=== PATIENT | female | born 1940 | race Caucasian/White ===

== ENCOUNTER → 2019-05-25 08:54 | Outpatient (CLI) | payer MEDICARE, OTHER, SELFPAY ==
--- NOTE | 2019-05-25 09:32 | PCM.CR.HP2 ---
CR - History & Physical - General Arrival date:: 05/25/19 Arrival time:: 09:00 Date of Referral:: 03/22/19 Date of CR Evaluation:: 05/25/19 Referring Physician: Dr. Mueller - History of Present Cardiac Event Onset Date: Enter Onset Date of cardiac illnesses in Comment field below Current stable Angina Pectoris:: No Acute Myocardial Infarction within 12 months:: No Heart valve replacement or repair:: Yes - 03/22/2019 PTCA or coronary stenting:: No Heart or Heart-Lung Transplant:: No Type of Symptoms:: more fatigued as usual, murmur Interventions with present event:: AVR Were there any complications?: none, brief period of a fib post op - Medications Home Medications: Ambulatory Orders Medication Instructions Recorded Aspirin [Aspirin, Baby] 81 mg PO DAILY@0800 05/25/19 Atorvastatin Calcium [Lipitor] 40 mg PO QHS 05/25/19 Cholecalciferol (Vitamin D3) 2,000 unit PO DAILY 05/25/19 [Vitamin D3] Multivit-Min/Iron/Folic Acid/K 1 each PO DAILY 05/25/19 [Adults Multivitamin Caplet] - Allergies Allergies/Adverse Reactions: Allergies amoxicillin [From Augmentin] Adverse Reaction (Intermediate, Verified 05/25/19 09:44) liver enzymes elevated clavulanic acid [From Augmentin] Adverse Reaction (Intermediate, Verified 05/25/19 09:44) liver enzymes elevated - Sleep Disorder Evaluation Hx of Sleep Apnea: No Do you snore loudly (louder than talking or can be heard through closed doors)?: No Do you often feel tired/ fatigued/ sleepy during daytime?: No Has anyone observed you stop breathing during sleep?: No History of Hypertension (for STOP score): No STOP Results: Negative Advanced Directives - Advanced Directives Power of Marketing Services Specialist: Yes - pt states she has and will bring copies into medical records Living Will: Yes Advance Directives Information Provided: No Advance Directives on File: No DNR Order?:: No Past Medical History - Past Surgical History Surgical History: hysterectomy - 1997, sinus surgery in 2003 as well Social History - Smoking History Smoking Status: Former smoker Years Smokin Packs Smoked per Day: 1 Hx Tobacco Use: Yes - Alcohol Use Alcohol Usage: Yes - one glass of wine per day with dinner - Substance Abuse Hx Substance Use: No - Occupation Occupation (List type of work in comments):: Retired - Hobbies, Recreation, Social Activities Hobbies: Reading, Walking Recreational Activities: I am able to engage in all my recreational activities Social Environment - Status Marital Status: - Current Living Arrangements Living Environment:: Alone - Children How many children do you have?: 2 Do any of your children live nearby?: No - Safety Do you feel safe in your surroundings?: Yes - Assistance Do you need any assistance at home?: none Review of Systems - Review of Systems Hints: Right click = Denies ([place]ash). Left click = Reports ([place]) Review of Present Symptoms: Reports: Wound Healing - edges well approximated without redness, edema or drainage, Appetite - Normal, Sleep - Normal. Denies: Shortness of Breath at Rest, Shortness of Breath with Exertion, PVD, Operative Discomfort, Angina, Dizziness/Lightheadedness, Fatigue, Heart Arrhythmia/Irregularities, Appetite - Special Diet - Pain Is Patient Pain Free?: Yes Risk Factor Assessment - Chief Complaint Chief Complaint: CURRENT POST AVR PT WHO PRESENTS TODAY FOR CARDIAC REHAB INTIAL EVALUATION - Vital Signs Temperature: 98.6 F Respiratory Rate: 20 Pulse Ox: 98 Blood Pressure: 128/88 Nailbeds:: PINK - Pulse Pulse Rate: 74 Pulse Rhythm: Regular - Stress Stress: Recent - H, Home/Family - IS IN A CARE CENTER FOR NOW - Diabetes Nutrition Referral for Diabetes: No - Obesity Height: 5 ft 1 in Weight:: 122 lb Weight in Pounds: 122.0 lbs Weight Source: Stated by Patient Body Mass Index (BMI): 23.0 - For Smoking Smoking Risk Guidelines: Smoking Low Risk: None or quit greater than 6 months ago. Smoking Moderate Risk: Smoker or quit 6 months or less ago. Smoking High Risk: Smoker - For Dyslipidemia Dyslipidemia Risk Guidelines: Low Risk: Moderate Risk: High Risk: 15-25% fat 25.1-29% fat >/= 30% fat. <7% sat fat 7-9% sat fat >9% sat fat. <150 mg chol 150-299 mg chol >/= 300 mg chol. LDL <100 LDL 100-129 LDL >/= 130. Chol/HDL ratio <5.0 Chol/HDL ratio 5.0-6.0 Chol/HDL ratio >6.0. Triglycerides <100 Triglycerides 100-149 Triglycerides >/= 150 - For Diabetes Mellitus Diabetes Risk Guidelines: Diabetes Low Risk: HgA1c <6.5% and/or FBG <120. Diabetes Moderate Risk: HgA1c 6.6-7.9% and/or FBG 120-180. Diabetes High Risk: HgA1c >/= 8% and/or FBG >180 - For Obesity/Overweight Obesity/Overweight Risk Guidelines: Obesity Low Risk: BMI <25.0. Obesity Moderate Risk: BMI 25-29.9. Obesity High Risk: BMI >/= 30.0 - For Hypertension Hypertension Risk Guidelines: Hypertension Low Risk: Systolic <120 and Diastolic <80. Hypertension Moderate Risk: Systolic 120-139 and Diastolic 80-89. Hypertension High Risk: Systolic >/= 140 and Diastolic >/= 90 - For Sedentary Lifestyle Sedentary Lifestyle Risk Guidelines: Sedentary Lifestyle Low Risk: >/= 1,500 kcal/week. Sedentary Lifestyle Moderate Risk: 700-1,499 kcal/week. Sedentary Lifestyle High Risk: < 700 kcal/week - For Depression Depression Risk Guidelines: Depression Low Risk: Not clinically depressed. Depression Moderate Risk: Mildly depressed. Depression High Risk: Clinically depressed Motivation - Motivation to Participate On a scale of 1 to 10, how prepared are you to commit to attending program?: 10 What do you see as barriers to successfully being able to complete the program?: NONE What do you see as the benefits of succesfully completing the program? In other words, what do you hope to get out of participating in the program?: INCREASED ENERGY, BODY HEALTH Are there issues you are dealing with that will interfere with completing the program?: POSSIBLE SITUATION IN CARE CENTER Do you have a spouse or signficant other, family or friends who will help support you to complete the program?: FAMILY AND FRIENDS VERY HELPFUL
--- NOTE | 2019-05-25 09:32 | PCM.CR.ITP ---
General Information - General Information Admitting Diagnosis: AV REPLACEMENT - Education/Goals Barriers to Learning: None Individual Counseling: Initial Assessment: Stress - PT RECENTLY PLACED IN CARE CENTER (POSS TEMPORARY) Cardiac Rehabilitation Goals: 1. Maintain the individual as the primary focus of care. 2. To improve the patient's quality of life. 3. Identification of cardiac risk factors and provide cardiac risk factor management. 4. Enhance the psychosocial status of the patient. 5. Reconditioning enough to allow the patient to resume customary activities. 6. Control symptoms of cardiac disease Scale for measuring improvement of personal goals: Enter appropriate number in Comments. 2 = Unchanged. 3 = Slightly Better. 4 = Moderate Improvement. 5 = Met my Goal Personal Goals: Initial Assessment: Improve energy level, Improve muscle strength and endurance Exercise - Initial Assessment - Visit Date of Eval: 05/25/19 - Stages of Change Stages of Change:: Action - Physician Prescribed Exercise Modalities: Treadmill, Biodyne, Airdyne, NuStep, SciFit Frequency (days/week): 3x/week for 12 weeks [36 sessions] Intensity: 60-80% age predicted maximum heart rate reserve Target Heart Rate:: 93-122 - Hypertension Do any of the following apply?: No Resting Blood Pressure:: 128/88 - Intervention Home Exercise/Activity Goal:: Sitting Time <3 hrs/day - Education Goals:: Warm-up, RPE GRAHAM Scale, S/S, Safe Exercise, Self-Monitoring Nutrition - Initial Assessment - Program Goals Nutrition Program Goals: LDL <70. Total Cholesterol <200. HDL >45. Triglycerides <150. HgbA1C <7%. BMI <25 - Visit Date of Assessment:: 05/25/19 - Stages of Change Stages of Change:: Action - LIPID PROFILE NOT AVAILABLE AT THIS TIME. PT STATES SHE WILL BRING IN - Diabetes Diabetes:: No - Weight Management Height: 5 ft 1 in Weight:: 122 lb - Intervention Referral to dietitian:: No Referral to Diabetic Clinic:: No Will attend diet classes:: Yes - CR CLASS Tobacco - Initial Assessment - Program Goals Tobacco Program Goals: Complete smoking cessation. Attend education classes. Improve Knowledge Test score - Stage of Change Stages of Change:: Action - Learning Barriers Learning Barriers: Ready to Learn - Family Support Do you have family support?: Yes - PT STATES SHE HAS SUPPORT FROM MANY FAMILY MEMBERS AND FRIENDS - Tobacco Use Tobacco Use: Non-smoker How long ago did you quit using tobacco products?: Greater than or equal to 6 months ago Years Smokin Do you use smokeless tobacco?: No - Intervention Smoking Cessation Referral:: No - PT QUIT SMOKING 35 YEARS AGO Individual Education/Counseling:: Yes - CR CLASSES - Education Attended class for:: Treating Heart Disease, How The Heart Works, What it means to have Heart Disease, How Coronary Artery Disease is Diagnosed, Heart Procedures, Risk Factors & Modifications, Living an Active Life, Nutrition, Emotions & Heart Disease, Stress Management & Relaxation - PT GIVEN THE INSTRUCTIONS ON HOW TO ACCESS THE [facility] WEBSITE FOR EDUCATION MATERIALS AT THIS TIME Psychosocial - Initial Assess - Target Goals Target Goals: Assess presence or absence of depression. Using a valid screening tool, maximizes coping skills. Positive support system - Stages of Change Stages of Change:: Action - Psychosocial Test Tool Used:: HANDS Depression Questionnaire - Intervention PS - Interventions: Yes Attend Stress Management Classes - CR CLASSES, Yes Uses Stress Management Skills - CR CLASSES, No Referral to Mental Health, No Referral to [facility] Case Management, No Referral to Physician - Education Gave educational materials for:: Coping techniques - [facility] ON-LINE EDUCATION MATERIAL DISCUSSED, Signs & symptoms of depression, Stress management, Relaxation techniques - Patient/Program Goal Preventative Medication(s):: Aspirin, Statin/lipid - Assistive Devices Assistive Devices:: None Fall Risk Assessed:: No Patient Health Questionnaire Initial Assessment 1. Little interest or pleasure in doing things: Not at all 2. Feeling down, depressed, or hopeless: Not at all 3. Trouble falling or staying asleep, or sleeping too much: Several days 4. Feeling tired or having little energy: Several days 5. Poor appetite or overeating: Not at all 6. Feeling bad about yourself -- or that you are a failure or have let yourself or your family down: Not at all 7. Trouble concentrating on things, such as reading the newspaper or watching television: Not at all 8. Moving or speaking so slowly that other people could have noticed. Or the opposite - being so fidgety or restless that you have been moving around a lot more than usual: Not at all 9. Thoughts that you would be better off , or of hurting yourself in some way: Not at all How difficult have these problems made it for you to do your work, take care of things at home, or get along with other people?: Not difficult at all Total Score: 2 LAVERNE-Q SV Test - Statements CAD is a disease of the arteries in the heart: False Examples of risk factors for heart disease: True Angina is chest pain or discomfort: True The benefits of resistance training include: True Eating more meat and dairy products: False Anti-platelet medications such as aspirin are important: I Don't Know The only effective way to manage stress: False An exercise warm-up slowly increases heart rate: True Prepared, processed foods usually have high sodium: True Depression is common after a heart attack: True The statin medications lower cholesterol: True To control blood pressure, lower the amount of sodium: True If someone gets chest discomfort during walking: False Transfats are partially hydrogenated vegetable oils: I Don't Know Sleep apnea that is not treated increases the risk: False To control cholesterol, one should become a vegetarian: False Someone knows if he/she is exercising at the right level: True Diabetes cannot be prevented with exercise & health eating: False Stress is a large risk for heart attack: True A diet that can help lower blood pressure is rich in: True - Total Score Total Correct Responses: 18 Self-Efficacy Initial Assessment We would like to know how confident you are in doing certain activities. Please select your confidence level for:: Select your confidence level for the following using the scale 1-10 where 1 is not at all confident and 10 is totally confident. Your score is the average of all 6 responses. Fatigue: How confident are you that you can keep the fatigue caused by your disease from interfering with the things you want to do? Select Number: 9 Physical Discomfort or Pain: How confident are you that you can keep the physical discomfort or pain of your disease from interfering with the things you want to do? Select Number: 10 Emotional Distress: How confident are you that you can keep the emotional distress caused by your disease from interfering with the things you want to do? Select Number: 10 Other Symptoms or Health Problems: How confident are you that you can keep other symptoms or health problems from interfering with the things you want to do? Select Number: 10 Different Tasks and Activities: How confident are you that you can do the different tasks and activities needed to manage your health condition so as to reduce your need to see a doctor? Select Number: 9 Medication: How confident are you that you can do things other than just taking medication to reduce how much your illness affects your everyday life? Select Number: 10 Total Score:: 9 Nutrition Survey - Nutrition Survey Instructions Scoring Instructions: Scoring is as follows: Yes = 1 points. No = 0 point. Patient score that is >/=12 is considered to be at potential nutritional risk and could benefit from a referral to a registered dietitian. - Nutrition Survey Initial Have you lost >10 lbs over the past 2 months without trying?: No Are you following a special diet at home for diabetes, low fat, or low salt?: No Are you interested in meeting with a dietitian for help understanding your diet?: No Do you eat less than 3 meals a day?: No Do you eat fatty meats (barlow, sausage, ribs, etc), fried foods, desserts, large amounts of salad dressings, margarine, butter, or cheese most days?: No Do you have food allergies? [Enter types in comment field]: No Do you eat in restaurants more than 3 times a week?: No Do you season food with salt, seasoning salt, or garlic salt?: Yes Do you used canned, boxed, frozen meals, or soups, seasoning packets?: No Total Score:: 1
[2019-05-25 10:01] VITALS: BP 128/88; PULSE 74; RESP 20; TEMP 37; O2SAT 98; BMI 23.0
[2019-05-25 10:33] VITALS: BP 128/88
== END ==
PROVIDERS: Family Provider Internal Medicine; PCP Internal Medicine
DX: Z95.2 Presence of prosthetic heart valve (principal); I10 Essential (primary) hypertension; E11.9 Type 2 diabetes mellitus without complications

== ENCOUNTER 2019-06-09 10:15 | Outpatient (RCR) | payer MEDICARE, OTHER, SELFPAY ==
[2019-05-25 10:01] VITALS: BMI 23.0
== END 2019-06-12 23:59 ==
LOC: CR 10:15
PROVIDERS: Family Provider Internal Medicine; PCP Internal Medicine
DX: Z95.2 Presence of prosthetic heart valve (principal)
CPT/HCPCS: 93798

== ENCOUNTER 2019-07-12 10:15 | Outpatient (RCR) | payer MEDICARE, OTHER, SELFPAY ==
[2019-05-25 10:01] VITALS: BMI 23.0
--- NOTE | 2019-06-23 14:50 | CR.ITP_ITS ---
General Information - General Information Admitting Diagnosis: AV Replacement - Education/Goals Cardiac Rehabilitation Goals: 1. Maintain the individual as the primary focus of care. 2. To improve the patient's quality of life. 3. Identification of cardiac risk factors and provide cardiac risk factor management. 4. Enhance the psychosocial status of the patient. 5. Reconditioning enough to allow the patient to resume customary activities. 6. Control symptoms of cardiac disease Scale for measuring improvement of personal goals: Enter appropriate number in Comments. 2 = Unchanged. 3 = Slightly Better. 4 = Moderate Improvement. 5 = Met my Goal Exercise - 30-day Assessment - Visit Date of Eval: 06/23/19 Session #:: 8 - Stages of Change Stages of Change:: Action - Physician Prescribed Exercise Modalities: Treadmill, Airdyne, NuStep Frequency (days/week): 3 Duration (Minutes):: 30-45 Intensity: 60-80% age predicted maximum heart rate reserve METs - Progression: 0.5-1.0 MET, RPE 11-14 WEEK: 3.9 Target Heart Rate:: 93-122 Max HR 131 - Hypertension Resting Blood Pressure:: 108/58 Peak Exercise Blood Pressure:: 160/90 - Intervention Home Exercise/Activity Goal:: Sitting Time <3 hrs/day - Education Goals:: Warm-up, RPE GRAHAM Scale, S/S, Safe Exercise, Self-Monitoring - Exercise Program Goals Exercise Program Goals: Aerobic Activity >30 min, B/P <130/80 Nutrition - 30-Day Assessment - Program Goals Nutrition Program Goals: LDL <70. Total Cholesterol <200. HDL >45. Triglycerides <150. HgbA1C <7%. BMI <25 - Visit Date of Eval: 06/23/19 - Stages of Change Stages of Change:: Action - Weight Management Weight:: 56.019 kg - Education Attended class for:: Signs & symptoms of hypoglycemia, Signs & symptoms of hyperglycemia, Relate diabetes to coronary artery disease, Healthy eating Tobacco - Initial Assessment - Program Goals Tobacco Program Goals: Complete smoking cessation. Attend education classes. Improve Knowledge Test score - Learning Barriers Learning Barriers: Ready to Learn Tobacco - 30-Day Assessment - Program Goals Tobacco Program Goals: Complete smoking cessation. Attend education classes. Improve Knowledge Test score - Stage of Change Stages of Change:: Action - Learning Barriers Learning Barriers: Participates in education - Family Support Do you have family support?: Yes - Tobacco Use Tobacco Use: Non-smoker Do you use smokeless tobacco?: No - Intervention Smoking Cessation Referral:: No Individual Education/Counseling:: No Education Schedule Given:: Yes - Education Attended class for:: Treating Heart Disease, How The Heart Works, What it means to have Heart Disease, How Coronary Artery Disease is Diagnosed Psychosocial - Initial Assess - Target Goals Target Goals: Assess presence or absence of depression. Using a valid screening tool, maximizes coping skills. Positive support system - Psychosocial Test Tool Used:: HANDS Depression Questionnaire - Assistive Devices Fall Risk Assessed:: No Psychosocial - 30-Day Assess - Target Goals Target Goals: Assess presence or absence of depression. Using a valid screening tool, maximizes coping skills. Positive support system - Stages of Change Stages of Change:: Action - Psychosocial Test Tool Used:: HANDS Depression Questionnaire - Intervention PS - Interventions: Yes Attend Stress Management Classes, Yes Uses Stress Management Skills, No Referral to Mental Health, No Referral to [facility] Case Management, No Referral to Physician - Education Attended classes for:: Coping techniques, Signs & symptoms of depression, Stress management, Relaxation techniques - Assistive Devices Assistive Devices:: None Fall Risk Assessed:: Yes Patient Health Questionnaire 30-Day Re-eval Assessment 1. Little interest or pleasure in doing things: Not at all 2. Feeling down, depressed, or hopeless: Not at all 3. Trouble falling or staying asleep, or sleeping too much: Several days 4. Feeling tired or having little energy: Several days 5. Poor appetite or overeating: Not at all 6. Feeling bad about yourself -- or that you are a failure or have let yourself or your family down: Not at all 7. Trouble concentrating on things, such as reading the newspaper or watching television: Not at all 8. Moving or speaking so slowly that other people could have noticed. Or the opposite - being so fidgety or restless that you have been moving around a lot more than usual: Not at all 9. Thoughts that you would be better off , or of hurting yourself in some way: Not at all How difficult have these problems made it for you to do your work, take care of things at home, or get along with other people?: Not difficult at all Total Score: 2 Self-Efficacy 30-Day Re-eval Assessment We would like to know how confident you are in doing certain activities. Please select your confidence level for:: Select your confidence level for the following using the scale 1-10 where 1 is not at all confident and 10 is totally confident. Your score is the average of all 6 responses. Fatigue: How confident are you that you can keep the fatigue caused by your disease from interfering with the things you want to do? Select Number: 9 Physical Discomfort or Pain: How confident are you that you can keep the physical discomfort or pain of your disease from interfering with the things you want to do? Select Number: 10 Emotional Distress: How confident are you that you can keep the emotional distress caused by your disease from interfering with the things you want to do? Select Number: 10 Other Symptoms or Health Problems: How confident are you that you can keep other symptoms or health problems from interfering with the things you want to do? Select Number: 10 Different Tasks and Activities: How confident are you that you can do the different tasks and activities needed to manage your health condition so as to reduce your need to see a doctor? Select Number: 9 Medication: How confident are you that you can do things other than just taking medication to reduce how much your illness affects your everyday life? Select Number: 10 Total Score:: 9
[2019-06-23 14:56] VITALS: BP 108/58; BP 160/90
== END 2019-07-13 23:59 ==
LOC: CR 10:15
PROVIDERS: Family Provider Internal Medicine; PCP Internal Medicine
DX: Z95.2 Presence of prosthetic heart valve (principal)
CPT/HCPCS: 93798

== ENCOUNTER 2019-08-13 10:15 | Outpatient (RCR) | payer MEDICARE, OTHER, SELFPAY ==
[2019-05-25 10:01] VITALS: BMI 23.0
[2019-07-14 00:52] VITALS: BP 108/58; BP 160/90
--- NOTE | 2019-07-23 08:13 | PCM.CR.ITP ---
Exercise - 60-Day Assessment - Visit Date of Eval: 07/23/19 Session #:: 18 - Patient started CR on 06/02/2019 - Stages of Change Stages of Change:: Action - Physician Prescribed Exercise Modalities: Treadmill, Airdyne, NuStep Frequency (days/week): 3 Duration (Minutes):: 30-45 Intensity: 60-80% age predicted maximum heart rate reserve METs - Progression: 0.5-1.0 MET, RPE 11-14 WEEK: 4 no increase Target Heart Rate:: 92-122 max HR 122 - Hypertension Resting Blood Pressure:: 124/74 Peak Exercise Blood Pressure:: 170/80 Medication Changes:: No - Intervention Home Exercise/Activity Goal:: Moderate Exercise 30 min/day x 5 days/wk - Education Goals:: Warm-up, RPE GRAHAM Scale, S/S, Safe Exercise, Self-Monitoring - Exercise Program Goals Exercise Program Goals: Aerobic Activity >30 min Nutrition - 60-Day Assessment - Program Goals Nutrition Program Goals: LDL <70. Total Cholesterol <200. HDL >45. Triglycerides <150. HgbA1C <7%. BMI <25 - Visit Date of Eval: 07/23/19 - Stages of Change Stages of Change:: Action - Lipids Has the patient seen the dietitian?: No - Diabetes Diabetes:: No Insulin: No Non-Insulin Dependent?: No - Weight Management Weight:: 124 lb - stable +/- pound - Intervention Referral to dietitian:: No Referral to Diabetic Clinic:: No Will attend diet classes:: Yes - Education Attended class for:: Healthy eating Tobacco - Initial Assessment - Program Goals Tobacco Program Goals: Complete smoking cessation. Attend education classes. Improve Knowledge Test score - Learning Barriers Learning Barriers: Ready to Learn Tobacco - 60-Day Assessment - Program Goals Tobacco Program Goals: Complete smoking cessation. Attend education classes. Improve Knowledge Test score - Stage of Change Stages of Change:: Action - Learning Barriers Learning Barriers: Participates in education, Change in behavior - Family Support Do you have family support?: Yes - Tobacco Use Tobacco Use: Non-smoker Do you use smokeless tobacco?: No - Intervention Smoking Cessation Referral:: No Individual Education/Counseling:: No Education Schedule Given:: Yes - Education Attended class for:: Treating Heart Disease, How The Heart Works, What it means to have Heart Disease, How Coronary Artery Disease is Diagnosed, Heart Procedures, What Heart Medications Do, Risk Factors & Modifications, Living an Active Life, Nutrition Psychosocial - Initial Assess - Target Goals Target Goals: Assess presence or absence of depression. Using a valid screening tool, maximizes coping skills. Positive support system - Psychosocial Test Tool Used:: HANDS Depression Questionnaire - Assistive Devices Fall Risk Assessed:: Yes Psychosocial - 60-Day Assess - Target Goals Target Goals: Assess presence or absence of depression. Using a valid screening tool, maximizes coping skills. Positive support system - Stages of Change Stages of Change:: Action - Psychosocial Test Tool Used:: HANDS Depression Questionnaire - Intervention PS - Interventions: Yes Attend Stress Management Classes, No Referral to Mental Health, No Referral to [facility] Case Management, No Referral to Physician, No Uses Stress Management Skills - Education Attended classes for:: Coping techniques, Signs & symptoms of depression, Stress management, Relaxation techniques - Patient/Program Goal Preventative Medication(s):: Aspirin - Patient reports taking medications as prescribed., MARISA inhibitor, Clopidogrel, Beta anahy, Statin/lipid - Assistive Devices Assistive Devices:: None Patient Health Questionnaire 60-Day Re-eval Assessment 1. Little interest or pleasure in doing things: Not at all 2. Feeling down, depressed, or hopeless: Not at all 3. Trouble falling or staying asleep, or sleeping too much: Not at all 4. Feeling tired or having little energy: Not at all 5. Poor appetite or overeating: Not at all 6. Feeling bad about yourself -- or that you are a failure or have let yourself or your family down: Not at all 7. Trouble concentrating on things, such as reading the newspaper or watching television: Not at all 8. Moving or speaking so slowly that other people could have noticed. Or the opposite - being so fidgety or restless that you have been moving around a lot more than usual: Not at all 9. Thoughts that you would be better off , or of hurting yourself in some way: Not at all Total Score: 0 Self-Efficacy 60-Day Re-eval Assessment We would like to know how confident you are in doing certain activities. Please select your confidence level for:: Select your confidence level for the following using the scale 1-10 where 1 is not at all confident and 10 is totally confident. Your score is the average of all 6 responses. Fatigue: How confident are you that you can keep the fatigue caused by your disease from interfering with the things you want to do? Select Number: 10 Physical Discomfort or Pain: How confident are you that you can keep the physical discomfort or pain of your disease from interfering with the things you want to do? Select Number: 10 Emotional Distress: How confident are you that you can keep the emotional distress caused by your disease from interfering with the things you want to do? Select Number: 10 Other Symptoms or Health Problems: How confident are you that you can keep other symptoms or health problems from interfering with the things you want to do? Select Number: 10 Different Tasks and Activities: How confident are you that you can do the different tasks and activities needed to manage your health condition so as to reduce your need to see a doctor? Select Number: 10 Medication: How confident are you that you can do things other than just taking medication to reduce how much your illness affects your everyday life? Select Number: 10 Total Score:: 10
[2019-07-23 08:17] VITALS: BP 124/74; BP 170/80
== END 2019-08-13 23:59 ==
LOC: CR 10:15
PROVIDERS: Family Provider Internal Medicine; PCP Internal Medicine
DX: Z95.2 Presence of prosthetic heart valve (principal)
CPT/HCPCS: 93798

== ENCOUNTER 2019-09-01 10:15 | Outpatient (RCR) | payer MEDICARE, OTHER, SELFPAY ==
[2019-05-25 10:01] VITALS: BMI 23.0
[2019-08-14 00:47] VITALS: BP 124/74; BP 170/80
--- NOTE | 2019-08-25 11:31 | CR.ITP_ITS ---
Diagnosis - General Information Admitting Diagnosis: AORTA REPLACEMENT REPAIR Personal Learning Style:: Audio/Visual, Written Barriers to Learning: No Barriers Stage of change r/t lifestyle modifications:: Action Gave educational material for:: Treating Heart Disease, Emotions & Heart Disease, Stress Management & Relaxation, Sleep Disorders & Heart Disease, How The Heart Works, What it means to have Heart Disease, How Coronary Artery Disease is Diagnosed, Heart Procedures, What Heart Medications Do, Risk Factors & Modifications, Living an Active Life, Nutrition - Education/Goals Cardiac Rehabilitation Goals: 1. Maintain the individual as the primary focus of care. 2. To improve the patient's quality of life. 3. Identification of cardiac risk factors and provide cardiac risk factor management. 4. Enhance the psychosocial status of the patient. 5. Reconditioning enough to allow the patient to resume customary activities. 6. Control symptoms of cardiac disease Personal Goals: Initial Assessment: Improve energy level, Get back to work, or to resume activities faster, Improve muscle strength and endurance Scale for measuring improvement of personal goals: Enter appropriate number in Comments. 2 = Unchanged. 3 = Slightly Better. 4 = Moderate Improvement. 5 = Met my Goal - Diagnosis & Disease Process Outcomes/Goals: Pt IDs own risk factors & lifestyle modifications by Session 10, Verbalizes symptoms of angina & response by session 3., Pt independently manages Plan/Interventions: Assist Pt to ID & engage in lifestyle modification to reduce CVD risk, Instruct on individual risk factors, Review symptoms of angina & emergency actions, Review secondary diagnosis & identify educational needs. 30 day Reassessments:: Met 30 day Reassessments:: Met 30 day Reassessments:: Met 30 day Reassessments:: Met - Safety Referral to Physical Therapy: No Referral to [facility] Case Management: No Fall Risk Assessed:: Yes Assistive Devices:: None Exercise - 90-day Assessment - Visit Date of Eval: 08/25/19 Session #:: 32 - Physician Prescribed Exercise Modalities: Treadmill, Airdyne, NuStep Frequency: 3x/week for 12 weeks [36 sessions] Intensity: 60-80% of age predicted maximum heart rate reserve Current METSs:: 4.0 INCREASED FROM INITIAL 2.5 Target Heart Rate:: 93-122 Current RPE:: 12-13 Maximum Excercise HR:: 126 Resting Blood Pressure: 128/60 Maximum Exercise Blood Pressure: 170/70 EKG Type: NSR TO SINUS TACH WITH SINGLE ISOLATED PVC - Outcomes & Goals Goals:: Verbalizes understanding of THR, RPE & goal METS by session 6, Documents in home exercise log/reports 30 min aerobic 5 day/wk by DC, Demonstrates accurate pulse taking by DC - Intervention & Plan Exercise Program Goals: Instruct on personal THR & RPE, Instruct on MET level & personal MET goal, Show patient to take own pulse /validate performance until accurate, Instruct on home exercise - 30-day Reassessments 30 day Reassessments:: Met - Physical Activity Home Exercise Physical Activity - Home Exercise: Safe Exercise, Warm-up, Self-monitoring, Cool-Down, Home Exercise > 30 min Daily, Sitting Time <3 hours/daily - Outcomes & Goals Outcomes/Goals: Demonstrates correct Warm-up/exercise Cool-Down (S3) if = 2.5 METs, Verbalizes symptoms of exercise intolerance by Session 3 (S3), Demonstrate safe equipment use (S3) & follows exercise prescrition (6) - Intervention & Plan Plan/Intervention: Instruct warm-up & cool-down if exercising at > 2 METs, Instruct on symptoms of exercise intolerance & actions to take, Instruct & monitor on saf, Assess intial functional capacity & safety risk - 30-day Reassessments 30 day Reassessments:: Met Nutrition - 90-Day Assessment - Program Goals Nutrition Program Goals: LDL <100 optimal. 100 - 129 Near optimal. 130 - 159 Borderline High. 160 - 189 High. Total Cholesterol <200 desirable. 200 - 239 Borderline High. >/= 240 High. HDL < 40 Low >/=60 High. Triglycerides <150 desirable. <199 optimal. VlDL 5 - 40. HgbA1C <7%. BMI <25 Patient has diagnosis of Hyperlipidemia (ICD E78)?: No - Visit Date of Assessment:: 08/25/19 Session #:: 32 - NO RECENT LIPD PROFILE AVAILABLE - Cholesterol/Lipids Referral to dietitian:: No - Diabetes (Other Core Measures) Diabetes Type: Not Applicable - Weight Mgt (Other Care) Not Applicable: Yes Weight:: 125 lb 8 oz BMI (Report if calculated above): 23.1 Diagnosis Overweight/Obesity BMI> 30% ICD-10 E66: No Diagnosis High BMI/Morbid Obesity BMI> 35% ICD-10 Z68: No Outcomes/Goals: Pt sets, maintains & shows weight loss goal & trend during rehab Intervention/Plan: Instruct on ideal BMI & set weight loss goal w/patient, Assist pt to ID & incorporate diet changes for weight loss by S9, Encourage goal of using 250-300dcal per session for weight loss 30 day Reassessments:: Met - Healthy Eating Habits Will attend diet classes:: Yes Outcomes/Goals:: Consume diet rich in vegs,fruits,whole grain/high fiber,fish,lean meat, Limit sat/trans fats,cholesterol & added salts & sugars Intervention/Plan:: Assess current eating habits 30-day Reassessments:: Met - Education Gave educational materials for:: Healthy eating Medical- 90-Day Assessment - Visit Date of Eval: 08/25/19 Session #:: 32 - Medication Compliance H/O mental health issues: depression, anxiety, or addiction?: No Doesn?t believe in the benefits of treatment?: No Believes medications are unnecessary or harmful?: No Has a concern about medication side effects?: No Expresses concern over the cost of medications?: No Outcomes/Goals: Verbalizes medications,desired effect & common side effects @ DC, Pt self-reports following medication regimen, Keeps card in wallet w/medications listed by DC Interventions/plans: Instruct on medication effects & side effects, Review medication list w/patient every two weeks, Instruct importance of taking meds as ordered & assist problem solving 30-day Reassessments:: Met - Tobacco Use Tobacco Use: Non-smoker - Hypertension Resting Blood Pressure:: 132/64 [place] [employer] Hypertension Guidelines: [place] [employer] Hypertension Guidelines. Normal BP Less than 120/80 Peak Exercise Blood Pressure:: 170/70 Outcomes/Goals: Able to verbalize/achieve optimal blood pressure <130/80, Incorporates diet changes & exercise for blood pressure control by DC Interventions/plan: Instruct on optimal blood pressure, hypertension & medications, Instruct on effects of sodium, alcohol, stress, exercise &hypertension 30 day Reassessments:: Met - Tobacco Cessation Referral Education Schedule Given:: Yes Psychosocial - 90-Day Assess - VIsit Date of Eval: 08/25/19 Session #:: 32 Not Applicable: Yes History of previous Mental disease:: No - Target Goals Target Goals: Assess presence or absence of depression. Using a valid screening tool, maximizes coping skills. Positive support system - Psychosocial Test Tool Used:: Almaz Paul QOL Cardiac, PHQ-9 Questionnaire phq-9 Severity: Severity. 1-4 Minimal Depression. 5-9 Mild Depression. 10-14 Moderate Depression. 15-19 Moderately Sever Depression. 20-27 Severe Depression. Rule: - Referral to Behavioral Health PS - Interventions: Yes Attend Stress Management Classes, No Referral to Behavioral Health if PHQ-9 score >9:, No Referral to [facility], No Referral to Physician if PHQ-9 if score is 5-9: - Outcomes/Goals: See list Psychosocial Outcomes/Goals:: ID's personal stressors & 2 strategies to manage stress by discharge - Intervention/Plan: See List Interventions/Plan:: Assess stressors,coping strategies & signs of derpression on admission, Instruct/assist pt to develop coping & personal stress Mgt strategies, Instruct patient to recognize signs & symptoms of depression, Instruct patient to recog - 30-day Reassessments: 30 day Reassessments:: Met Patient Health Questionnaire 90-Day Re-eval Assessment 1. Little interest or pleasure in doing things: Not at all 2. Feeling down, depressed, or hopeless: Not at all 3. Trouble falling or staying asleep, or sleeping too much: Not at all 4. Feeling tired or having little energy: Not at all 5. Poor appetite or overeating: Not at all 6. Feeling bad about yourself -- or that you are a failure or have let yourself or your family down: Not at all 7. Trouble concentrating on things, such as reading the newspaper or watching television: Not at all 8. Moving or speaking so slowly that other people could have noticed. Or the opposite - being so fidgety or restless that you have been moving around a lot more than usual: Not at all 9. Thoughts that you would be better off , or of hurting yourself in some way: Not at all Total Score: 0 Self-Efficacy 90-Day Re-eval Assessment We would like to know how confident you are in doing certain activities. Please select your confidence level for:: Select your confidence level for the following using the scale 1-10 where 1 is not at all confident and 10 is totally confident. Your score is the average of all 6 responses. Fatigue: How confident are you that you can keep the fatigue caused by your disease from interfering with the things you want to do? Select Number: 10 Physical Discomfort or Pain: How confident are you that you can keep the physical discomfort or pain of your disease from interfering with the things you want to do? Select Number: 10 Emotional Distress: How confident are you that you can keep the emotional distress caused by your disease from interfering with the things you want to do? Select Number: 10 Other Symptoms or Health Problems: How confident are you that you can keep other symptoms or health problems from interfering with the things you want to do? Select Number: 10 Different Tasks and Activities: How confident are you that you can do the different tasks and activities needed to manage your health condition so as to reduce your need to see a doctor? Select Number: 10 Medication: How confident are you that you can do things other than just taking medication to reduce how much your illness affects your everyday life? Select Number: 10 Total Score:: 10
[2019-08-25 11:38] VITALS: BP 128/60; BP 132/64; BP 170/70; BMI 23.1
== END 2019-09-11 23:59 ==
LOC: CR 10:15
PROVIDERS: Family Provider Internal Medicine; PCP Internal Medicine
DX: Z95.2 Presence of prosthetic heart valve (principal)
CPT/HCPCS: 93798

== ENCOUNTER 2021-07-09 13:22 | Emergency (ER) | payer MEDICARE, OTHER, SELFPAY ==
[2021-07-09 13:23] VITALS: BP 138/77; PULSE 72; RESP 18; TEMP 35.8; O2SAT 99; BMI 24.5
--- NOTE | 2021-07-09 14:42 | CT_ITS ---
INDICATION: LLQ Abd pain EXAMINATION: CT ABDOMEN AND PELVIS WITH CONTRAST - CT Abdomen And Pelvis W/ Contrast Injection TECHNIQUE: Helically acquired images were obtained of the abdomen and pelvis following IV contrast. A radiation dose optimization technique was used for this scan. IV Contrast dosage and agent: 100 mL of ISOVUE-300 Oral contrast: None. COMPARISON: None. FINDINGS: LOWER CHEST: Lung bases are clear. No cardiomegaly or pericardial effusion. LIVER: Homogeneous. No focal mass. GALLBLADDER AND BILIARY TREE: No calcified gallstones. No gallbladder distension or wall edema. No intra- or extrahepatic biliary ductal dilation. PANCREAS: No focal cystic or solid mass. SPLEEN: Normal size without focal cystic or solid mass. ADRENAL GLANDS: No nodules. KIDNEYS AND URETERS: Normal renal size and position. No hydronephrosis. PERITONEUM: No ascites or free air. No other fluid collection. BOWEL: No evidence of acute appendicitis. Scattered diverticular disease visualized within the large bowel but no evidence of acute diverticulitis is seen. Abundance of stool is visualized in the large bowel. LYMPH NODES: No enlarged mesenteric or retroperitoneal lymph nodes. VESSELS: Aorta is non-dilated. URINARY BLADDER: Unremarkable. REPRODUCTIVE ORGANS: No pelvic masses. ABDOMINAL WALL: A 2 cm defect is visualized in the left lower quadrant anterior abdominal wall with herniation of loops of small bowel visualized, the herniated loops of small bowel demonstrate the luminal dilation measuring approximately 2.4 cm with subtle enhancement of the patterson and the excessive stranding of the adjacent fat planes with subtle fluid layering visualized findings suggestive of for incarcerated loops of bowel. Mild stranding of the fat planes visualized in the left lower quadrant, mild prominence of the adjacent loops of small bowel is seen at this location. Infraumbilical hernia seen. BONES: No lytic or blastic abnormality. Degenerative bone changes seen most prominent at L4-L5. Circumferential disc bulge visualized at L4-L5 with severe narrowing of bilateral neuroforamina. CT/Abdomen/Pelvis W IV Cont ONLY IMPRESSION: 2 cm hernia defect in the left lower quadrant anterior abdominal wall with herniating loops of s,all bowel that demonstrate findings consistent with strangulation. Strangulated left lower quadrant anterior abdominal wall hernia. Recommend surgical consultation. Results were communicated to the emergency room physician at time of interpretation of the study. Electronically Signed: Giorgio Stratton MD at 16:22 EST Tel , Service support ,
--- NOTE | 2021-07-09 14:43 | EDS_ITS ---
HPI HPI - GI History of Present Illness Chief Complaint: Abd Pain Informant: patient Abdominal Pain/Flank Pain Onset: Today Context: Gradual Onset Timing: Continuous Quality: Aching Location: LLQ Current Severity: Mild Maximum Severity: Moderate Worsened by: Nothing Relieved by: Nothing Nausea/Vomiting/Emesis GI Symptom: Positive for Nausea; Negative for Vomiting Onset: Today Diarrhea/Melena/Hematochezia GI Symptom: Negative for Diarrhea, Melena and Hematochezia Associated Symptoms Associated Symptoms: Negative for Dysuria, Frequency and Hematuria Narrative Narrative: 81-year-old female history of prior diverticulitis. She also has a bovine aortic valve. States that 8:00 this morning she started having left lower quadrant abdominal pain consistent when she has had prior diverticulitis. Associated nausea but no vomiting or diarrhea no dysuria. No fever. Prior similar symptoms: Yes Recent Illness/Hospitalization: No PFSH PFSH Medical History Diverticula, colon High cholesterol Home Medications aspirin 81 mg PO DAILY@0800 05/25/19 [History Last Taken Unknown] atorvastatin 40 mg PO QHS 05/25/19 [History Last Taken Unknown] cholecalciferol (vitamin D3) 2,000 unit PO DAILY 05/25/19 [History Last Taken Unknown] vahmgzmbixsp-yfa-gryu-FA-vit K 1 ea PO DAILY 05/25/19 [History Last Taken Unknown] Allergy/AdvReac Type Severity Reaction Status Date / Time amoxicillin [From Augmentin] AdvReac Intermediate liver Verified 07/09/21 13:22 enzymes elevated clavulanic acid AdvReac Intermediate liver Verified 07/09/21 13:22 [From Augmentin] enzymes elevated Surgical History Aortic valve replaced Social History Smoking Status: Former smoker ROS ROS ED ROS Narrative Nausea and left lower quadrant abdominal pain. Review of Systems ROS Unobtainable: Denies due to encephalopathy Constitutional Constitutional ED: Denies fever(s) ENT ENT ED: Denies ear pain Cardiovascular Cardiovascular: Denies chest pain Respiratory/Chest Respiratory/Chest: Denies cough or dyspnea Gastrointestinal Gastrointestinal: Reports abdominal pain and nausea; Denies constipation, diarrhea or vomiting Genitourinary Genitourinary ED: Denies dysuria Musculoskeletal Musculoskeletal: Denies myalgias Integumentary Denies rash Neurologic Neurologic: Denies headache(s) Psychiatric Psychiatric: Denies depression Endocrine Endocrinology: Denies polyuria Hematologic/Lymphatic Hematologic/Lymphatic: Denies easy bruising Allergic/Immunologic Allergic/Immunologic ED: Denies urticaria EXAM Physical Exam Narrative Exam Narrative: 11-year-old female no acute distress vital signs stable afebrile. HEENT exam dry mucous memories. Lungs are clear. Heart regular rhythm. Abdomen soft nondistended normal bowel sounds no peritoneal signs. Tender only in the left lower quadrant. Possible hernia but no mass nor pulsatile mass. Right upper and right lower quadrants are unremarkable. There is no distention or signs of obstruction. Soft and positive bowel sounds. Otherwise exam unremarkable. Const Vital Signs: 07/09/21 13:23 Temperature 96.5 F L Temperature Source Temporal Pulse Rate 72 Respiratory Rate 18 Blood Pressure 138/77 H Blood Pressure Mean 97 Pulse Ox 99 Oxygen Delivery Method Room Air Positive well nourished and well developed; Negative for obese, cachectic, contractures or unkempt General Appearance ED: well developed and NAD; Negative for unkempt, cachectic, contractures or pallor Nutritional Appearance: Negative for cachectic or obese HEENT Reports dry mucous membranes normocephalic and atraumatic; Negative for trauma or tenderness Mouth ED: Yes dry mucous membranes Mouth: dry mucous membranes Eyes PERRL and EOMs intact bilaterally Neck no lymphadenopathy, supple and no JVD General: Negative for tenderness Resp normal respiratory effort and clear to auscultation bilaterally Auscultation: Negative for rales, rhonchi or wheezes Cardio regular rate, regular rhythm, S1 normal heart sound, S2 normal heart sound and no murmurs GI non-distended and no masses; Negative for non-tender GI Narrative: Tenderness primarily left lower quadrant. There may be a possible hernia in this spot versus diverticulitis. Inspection: Negative for abdominal distention Auscultation: normoactive bowel sounds Palpation: soft and tender; Negative for guarding, rigid or rebound tenderness present Back/Spine no CVA tenderness General Back: Negative for CVA tenderness Extremity full ROM General Extremety ED: Negative for edema or tenderness General Extremity: Negative for edema Neuro moves all extremities Sensorium / Orientation: alert, oriented to person, oriented to place and oriented to time; Negative for orientation impaired, confused, lethargic or stuporous Motor Exam: strength 5/5 throughout Psych mental status grossly normal and thought process normal Appearance: Negative for unkempt Attitude: No agitated Mood & Affect: Negative for depressed or tearful Skin no wounds General Skin Exam: Negative for jaundice or pallor Lesions: no lesions Rashes: no rashes MDM MDM MDM Narrative Medical decision making narrative: 81-year-old female left lower quadrant abdo rene pain consistent with diverticulitis or possibly a left lower quadrant hernia.. CAT scan and labs pending. Treated with IV fluids for clinical dehydration and morphine for pain Zofran for nausea. Repeat exam the patient at 4:30 PM she is improved with the pain medication. She had I discussed her diagnosis of a strangulated hernia and I have surgery on page. Dr. Jake Valentine came in the emergency department evaluate the patient himself. She had been lying flat with a ice pack on her left lower quadrant hernia. Currently her pain is almost completely resolved. Her hernia seems to reduce itself spontaneously. He is comfortable with her being discharged home. I did reevaluate the patient myself also and it does seem like the hernia is resolved. Patient feels well and will be discharged home with close follow-up for discussion of hernia repair. She knows return if increasing pain or she feels worse. Lab Data Attestation: I reviewed the patient's lab results. Lab results narrative: CBC shows a white count 12.3. Hemoglobin 15.8. Platelets of 197. Chemistries show a gap of 8 BUN of 13 creatinine 0.5 normal liver enzymes other than a total bilirubin 1.1 normal lipase 81. CAT scan shows a strangulated hernia in the left lower quadrant with bowel. This is read by the radiologist and he discussed with me. Labs: Laboratory Results - last 24 hr 07/09/21 07/09/21 07/09/21 13:55 13:55 15:24 WBC 12.3 H RBC 4.86 Hgb 15.8 H Hct 44.8 MCV 92.2 MCH 32.5 H MCHC 35.3 RDW Std Deviation 40.3 RDW Coeff of Ralf 12.1 Plt Count 197 MPV 11.1 Immature Gran % (Auto) 0.500 Neut % (Auto) 89.1 H Lymph % (Auto) 8.4 L [place] % (Auto) 1.6 Eos % (Auto) 0.1 Baso % (Auto) 0.3 Absolute Neuts (auto) 11.0 H Absolute Lymphs (auto) 1.04 Nucleated RBC % 0 Sodium Cancelled 137 Potassium Cancelled 3.5 Chloride Cancelled 105 Carbon Dioxide Cancelled 24.0 Anion Gap Cancelled 8 BUN Cancelled 13 Creatinine Cancelled 0.53 L Estim Creat Clear Calc Cancelled 34.42 Est GFR (MDRD) Af Amer Cancelled 143 Est GFR (MDRD) Non-Af Cancelled 118 BUN/Creatinine Ratio Cancelled 24.6 H Glucose Cancelled 106 Calcium Cancelled 8.7 Total Bilirubin Cancelled 1.10 H AST Cancelled 22 ALT Cancelled 35 Alkaline Phosphatase Cancelled 86 Total Protein Cancelled 6.7 Albumin Cancelled 3.6 Globulin Cancelled 3.1 Albumin/Globulin Ratio Cancelled 1.2 Lipase Cancelled 81 Radiography Diagnostic Testing: Clinical Impression(s) from Imaging Studies Abdomen/Pelvis CT 07/09/21 14:42 IMPRESSION: 2 cm hernia defect in the left lower quadrant anterior abdominal wall with herniating loops of s,all bowel that demonstrate findings consistent with strangulation. Strangulated left lower quadrant anterior abdominal wall hernia. Recommend surgical consultation. Results were communicated to the emergency room physician at time of interpretation of the study. Electronically Signed: Giorgio Stratton MD at 16:22 EST Tel , Service support , Discharge Plan Triage Chief Complaint: Abd Pain ED Provider: Freddy Burt Dx/Rx/DC Orders Clinical Impression: Abdominal pain, acute, Hernia with strangulation Instructions: ED Hernia (Adult) Prescriptions: No Action aspirin 81 MG tablet,chewable 81 mg PO DAILY@0800 RF: 0 atorvastatin 40 MG tablet 40 mg PO QHS RF: 0 cholecalciferol (vitamin D3) 2,000 UNIT tablet,chewable 2,000 unit PO DAILY RF: 0 hlirirddsfzs-clk-snkr-FA-vit K 1 EACH tablet 1 ea PO DAILY RF: 0 Primary Care Provider: Gm Dias Referrals: Ketan Valentine MD [STAFF PHYSICIAN] - As soon as possible Gm Dias MD [Primary Care Provider] - Activity Restrictions/Additional Instructions: Follow-up with Dr. Jake Valentine to discuss with him having your left lower abdominal hernia repaired. Today it seemed to have reduced and gone back in. If you have recurrent increasing pain, fever, abdominal distention or vomiting or feel worse return. Tylenol for pain if you need anything more than that return to be reevaluated. Disposition Disposition: Home, Self Care
[2021-07-09] MEDS: Ondansetron 4 MG/2 ML Vial IV (14:51)
[2021-07-09] MEDS: morphine 8 MG/ML Syringe IV (14:51)
[2021-07-09] MEDS: 0.9% Normal Saline 1,000 ML 1000 ML IV (14:51)
[2021-07-09 14:54] LABS: Absolute Lymphocyte Count 1.04 X10^3/uL (0.83-4.51); Basophil# 0.04 X10^3/uL; Basophil% 0.3 % (0-1); Eosinophil# 0.01 X10^3/uL; Eosinophils% 0.1 % (0-5); Hematocrit 44.8 % (37-47); Hemoglobin 15.8 g/dL (12.0-15.0); Lymphocyte # 1.04 X10^3/ul (0.83-4.51); Lymphocyte % 8.4 % (19-41); Mean Corp Hgb Conc 35.3 g/dL (32-36); Mean Corpuscular Hgb 32.5 pg (27.0-32.0); Mean Corpuscular Volume 92.2 fL (81-99); Mean Platelet Vol. 11.1 fl (6.2-12.0); Monocyte% 1.6 % (0-10); NRBC Flagged by Analyzer 0 % (0-5); Neutrophil # 10.98 X10^3/uL (2.7-7.7); Neutrophil % 89.1 % (47-70); Platelet Count 197 K/mm3 (150-450); RBC Distribution Width CV 12.1 % (11.6-14.6); RBC Distribution Width SD 40.3 fl (35.1-43.9); Red Blood Count 4.86 M/mm3 (4.2-5.4); White Blood Count 12.3 K/mm3 (4.4-11.0)
[2021-07-09 15:49] LABS: ALB/GLOB Ratio 1.2 RATIO (0.9-2.4); AST(SGOT) 22 U/L (15-37); Alanine Aminotransfer ALT/SGPT 35 U/L (13-56); Albumin, Serum 3.6 g/dL (3.2-5.0); Alkaline Phosphatase 86 U/L (45-117); Anion Gap 8 (5-15); BUN 13 mg/dL (7-18); BUN/Creat Ratio 24.6 RATIO (10-20); Calcium,Total 8.7 mg/dL (8.5-10.1); Chloride 105 mmol/L (98-107); Creatinine, Serum 0.53 mg/dL (0.55-1.02); EST Glomerular Filtration Rate 118 mL/min (>60); Est Glom Filt Rate - Afr Amer 143 mL/min (>60); Estimated Creatinine Clearance 34.42 ml/min; Globulin 3.1 g/dL (2.2-4.2); Glucose 106 mg/dL (74-106); Lipase 81 U/L (73-393); Potassium 3.5 mmol/L (3.5-5.1); Protein, Total 6.7 g/dL (6.4-8.2); Sodium Level 137 mmol/L (136-145)
[2021-07-09 16:39] LABS: Bacteria 0 SEEN /hpf (None Seen); Mucous, Urine 0 SEEN /hpf (<or=2+); Red Blood Cells-Urine 0 SEEN /hpf (0-5); Squamous Epithelial Cells - UA 0 SEEN /hpf (5-10); White Blood Cells 0 SEEN /hpf (0-5)
[2021-07-09 16:53] LABS: Color, Urine Yellow (Yellow); Glucose, Dipstick Normal (Normal); Ketone-Dipstick 50 mg/dl (Negative); Leukocyte Esterase-Dipstick Negative /ul (Negative); Nitrite-Dipstick Negative (Negative); Occult Blood-Urine Negative /ul (Negative); Protein-Dipstick Negative (Negative); Specific Gravity, Urine 1.015 (1.002-1.030); Urine Bilirubin Dipstick Negative (Negative); Urine Clarity Clear (Clear); Urine Urobilinogen Normal (Normal)
[2021-07-09 16:59] LABS: Amorphous Sediment 1+
== END 2021-07-09 17:50 | disposition home or self-care (01) ==
PROVIDERS: Emergency Provider Emergency Medicine; PCP Internal Medicine
DX: K43.6 Other and unspecified ventral hernia with obstruction, without gangrene (principal); E78.00 Pure hypercholesterolemia, unspecified; Z79.82 Long term (current) use of aspirin; Z79.899 Other long term (current) drug therapy; Z87.19 Personal history of other diseases of the digestive system; Z87.891 Personal history of nicotine dependence; Z95.3 Presence of xenogenic heart valve
CPT/HCPCS: 74177; 80053; 81001; 83690; 85025; 96361; 96374; 96375; 99283; Q9967; A4216; J2405

== ENCOUNTER 2021-07-11 14:45 | Observation (INO) | payer MEDICARE, OTHER, SELFPAY ==
[2021-07-11 15:17] VITALS: BMI 24.7
[2021-07-11 15:30] VITALS: BP 152/79; PULSE 77; RESP 16; TEMP 36.4; O2SAT 97
[2021-07-11] MEDS: 0.9% Normal Saline 1,000 ML 100 ML IV (16:47)
--- NOTE | 2021-07-11 16:47 | PCS.PANDOC ---
PANDEMIC DOCUMENTATION INITIATED: Date: 02/26/2021 Time: 190
[2021-07-11] MEDS: 0.9% Saline Lock 10 ML Syringe IV (16:48)
--- NOTE | 2021-07-11 19:30 | NURSING ---
per Dr Carter, pt does not need covid test pre-op due to fully vaccinated
--- NOTE | 2021-07-11 19:54 | HP.PCM_ITS ---
History and Physical Date of Admission: 07/11/21 Date of Service: 07/11/21 MR#:[id number]: NANCY [id number]:1940 Provider:Dr. Harper Carter MDAge/Sex: 81/F [facility] Int[facility] Vital Signs 07/11/21 13:32 Height 5 ft 1 in Weight: 130 lb 4 oz BMI 24.6 BP 134/80 H Blood Pressure Location Rt brachial Position Sitting Respiration 18 Pulse 102 H Pulse Source Monitor Temp 97 F L Temp Source Temporal Pulse Oximetry (%) 97 Oxygen Delivery Method room air Intake Visit Reasons: New consult hernia, follow up ED visit Chief Complaint: new consult hernia, follow up ED visit Human Resources Operations Specialist Required: No Is patient in pain?: Yes Allergies amoxicillin [From Augmentin] Adverse Reaction (Intermediate, Verified 07/11/21 13:34) liver enzymes elevated clavulanic acid [From Augmentin] Adverse Reaction (Intermediate, Verified 07/11/21 13:34) liver enzymes elevated Medications aspirin 81 mg PO DAILY@0800 05/25/19 [History Confirmed 07/11/21] atorvastatin 40 mg PO QHS 05/25/19 [History Confirmed 07/11/21] cholecalciferol (vitamin D3) 2,000 unit PO DAILY 05/25/19 [History Confirmed 07/11/21] ngaqtpprnrxx-ild-gnzy-FA-vit K 1 ea PO DAILY 05/25/19 [History Confirmed 07/11/21] PFSH Medical History Diverticula, colon High cholesterol Surgical History (Updated 07/11/21 @ 13:31 by Justyna Friday) Aortic valve replaced History of hysterectomy History of sinus surgery Social History (Updated 07/11/21 @ 13:31 by Justyna Friday) Smoking Status: Former smoker alcohol intake: current substance use type: does not use HPI HPI HPI: NANCY RAE, is a 81 F who presents to the office today for left lower quadrant pain. Patient was seen in the ED on this Friday CT abdomen pelvis showed an incarcerated possibly strangulated left spigelian hernia. Patient was seen by surgery by ER note -said to have self reduced. Patient states that she when she went home she was still having some discomfort and yesterday she did have a large knot at that area states she has not had much of an appetite or any bowel movement since Friday morning she has had a very little amount of gas patient has been able to drink water but has not eaten anything else. ROS General General: No weight change, appetite, fatigue, colon cancer or breast cancer HEENT HEENT: No difficulty swallowing, eye injury, eye surgery, swollen glands or hoarseness Endo Endocrine: No thyroid disease, diabetes mellitus, thyroid cancer, Hair loss, heat intolerance or cold intolerance Skin Skin: No rash or changing moles Musc Musculoskeletal: No back problems, arthritis, rheumatoid arthritis, gout or joint pain Cardio Cardiovascular: No murmur, pacemaker, heart disease, atrial fibrillation, high blood pressure, heart attack, heart stent, palpitations, shortness of breat with exertion or chest pain Psych Psychiatric: No depression, anxiety or hearing voices Resp Respiratory: No shortness of breath, No sleep apnea, No cough, No COPD, No asthma, No emphysema and No wheezing Gastro Gastrointestinal: Yes abdominal pain, No nausea or vomiting, No diarrhea, Yes constipation, No blood in stool, Yes acid reflux, No hemorrhoids, No ulcers, No gallbladder problem and No black,tarry stools Pito Hematologic: No blood thinners, No blood disorders, No bleeding, No anemia and No blood clots Neuro Neurologic: No abnormal speech and No confusion Exam Const General: cooperative, healthy appearing, comfortable and no acute distress Eyes Conjunctivae: conjunctivae normal Sclera: sclerae normal Neck Neck: normal visual inspection Resp Effort & Inspection: normal respiratory effort Cardio Rate: regular rate GI Inspection: non-distended Palpation: soft, hernia (Left spigelian hernia able to be reduced at bedside proven with ultrasound) and tender (At hernia in the left lower quadrant) Skin General: no rashes or lesions noted Neuro General: patient oriented x3 Extrem General: no clubbing, cyanosis or edema Psych Affect: normal affect COVID (Procedure Consent) Procedure Criteria Procedure Criteria: Yes Elective The surgeon/proceduralist and patient have discussed in detail the risk of exposure to and/or potential harm posed by the COVID-19 virus with having a surgery/procedure at this time versus the risk of delaying the surgery/procedure. It is not possible to know either the risk of delaying the surgery or procedure or chance of getting an infection with perfect accuracy, but a joint decision was made between the patient and the surgeon/ proceduralist to proceed at this time with the scheduled surgery/procedure as indicated on the consent form. Assessment and Plan Assessment and Plan (1) Spigelian hernia: Status: Acute Comment: left reduced Plan - Dr. Harper Carter MD: Discussed with patient plan be to admit patient for observation overnight/pain control and plan to do a laparoscopic hernia repair with mesh tomorrow discussed the procedure including but not limited to risk of bleeding, infection, injury to another organ, and anesthesia. Would plan for IV fluids and pain control. Okay for patient to eat until midnight and then n.p.o. Patient no further questions at this time. Harper Carter M.D. Pager: [phone] [facility] [address] [place] [address], [address] [place] [address] Office: [phone] Coding Level of Care Code Off vis,new,level 4 Diagnoses Spigelian hernia K43.9 07/11/21 1418<Electronically signed by Harper Carter MD>Date Harper Carter MD
[2021-07-11 21:38] VITALS: BP 119/63; PULSE 82; RESP 18; TEMP 36.8; O2SAT 97
[2021-07-12] VITALS (15 sets, daily range): BP systolic 101–163; BP diastolic 61–87; PULSE 72–89; RESP 16–18; TEMP 36.3–36.8; O2SAT 91–99; BMI 24.7
[2021-07-12] MEDS: 0.9% Normal Saline 1,000 ML 100 ML IV ×3 (02:03→14:56)
[2021-07-12 05:36] LABS: Absolute Lymphocyte Count 1.45 X10^3/uL (0.83-4.51); Absolute Neutrophil Count 6.2 X10^3/uL (2.0-7.7); Basophil# 0.04 X10^3/uL; Basophil% 0.5 % (0-1); Eosinophil# 0.45 X10^3/uL; Eosinophils% 5.1 % (0-5); Hematocrit 38.1 % (37-47); Hemoglobin 12.9 g/dL (12.0-15.0); Lymphocyte # 1.45 X10^3/ul (0.83-4.51); Lymphocyte % 16.5 % (19-41); Mean Corp Hgb Conc 33.9 g/dL (32-36); Mean Corpuscular Hgb 32.1 pg (27.0-32.0); Mean Corpuscular Volume 94.8 fL (81-99); Mean Platelet Vol. 9.4 fl (6.2-12.0); Monocyte# 0.62 X10^3/uL; Monocyte% 7.1 % (0-10); NRBC Flagged by Analyzer 0 % (0-5); Neutrophil # 6.19 X10^3/uL (2.7-7.7); Neutrophil % 70.6 % (47-70); Platelet Count 197 K/mm3 (150-450); RBC Distribution Width CV 12.1 % (11.6-14.6); RBC Distribution Width SD 42.3 fl (35.1-43.9); Red Blood Count 4.02 M/mm3 (4.2-5.4); White Blood Count 8.8 K/mm3 (4.4-11.0)
[2021-07-12 06:12] LABS: Anion Gap 4 (5-15); BUN 15 mg/dL (7-18); BUN/Creat Ratio 32.4 RATIO (10-20); Calcium,Total 7.7 mg/dL (8.5-10.1); Chloride 109 mmol/L (98-107); Creatinine, Serum 0.46 mg/dL (0.55-1.02); EST Glomerular Filtration Rate 138 mL/min (>60); Est Glom Filt Rate - Afr Amer 167 mL/min (>60); Estimated Creatinine Clearance 34.42 ml/min; Glucose 98 mg/dL (74-106); Potassium 3.8 mmol/L (3.5-5.1); Sodium Level 138 mmol/L (136-145)
--- NOTE | 2021-07-12 08:36 | PN.SURG_ITS ---
Subjective Subjective Patient admits to slight tenderness in the left lower quadrant denies any bulge. Patient has had flatus as well as a bowel movement and was able to tolerate food yesterday. Objective Data Objective Data Vital Signs: Vital Signs Temp Pulse Resp BP Pulse Ox 98.3 F 83 18 106/62 95 07/12/21 02:21 07/12/21 02:21 07/12/21 02:21 07/12/21 02:21 07/12/21 02:21 Oxygen Delivery Method Room Air Weight: 131 lb 3.2 oz Body Mass Index (BMI) 24.7 Intake & Output: Intake and Output for Last 24 Hours 07/10/21 07/11/21 07/12/21 23:59 23:59 23:59 Intake Total 1226.67 / 1226.67 Balance 1226.67 / 1226.67 Lab / Micro Data Result Diagrams: 07/12/21 05:20 07/12/21 05:20 Labs: Laboratory Results - last 24 hr 07/12/21 05:20: WBC 8.8, RBC 4.02 L, Hgb 12.9, Hct 38.1, MCV 94.8, MCH 32.1 H, MCHC 33.9, RDW Std Deviation 42.3, RDW Coeff of Ralf 12.1, Plt Count 197, MPV 9.4, Immature Gran % (Auto) 0.200, Neut % (Auto) 70.6 H, Lymph % (Auto) 16.5 L, [place] % (Auto) 7.1, Eos % (Auto) 5.1 H, Baso % (Auto) 0.5, Absolute Neuts (auto) 6.2, Absolute Lymphs (auto) 1.45, Nucleated RBC % 0 07/12/21 05:20: Sodium 138, Potassium 3.8, Chloride 109 H, Carbon Dioxide 25.0, Anion Gap 4 L, BUN 15, Creatinine 0.46 L, Estim Creat Clear Calc 34.42, Est GFR (MDRD) Af Amer 167, Est GFR (MDRD) Non-Af 138, BUN/Creatinine Ratio 32.4 H, Glucose 98, Calcium 7.7 L Physical Exam Resp normal respiratory effort Cardio regular rate GI GI Narrative: Soft, nondistended, mild tenderness palpation left lower quadrant, no hernia appreciated on exam, no peritoneal signs Assessment & Plan Assessment/Plan (1) Spigelian hernia: (2) Abdominal pain, acute: PLAN: Hernia still be reduced. We will plan for surgery today at about 130 for a laparoscopic hernia repair with mesh. Again procedure is reviewed with the patient she had no further question this time. Harper Carter M.D. Pager: [phone] [facility] [address] [place] [address], [address] [place] [address] Office: [phone]
--- NOTE | 2021-07-12 11:59 | NURSING ---
pt transported off unit via bed at this time for surgery
[2021-07-12] MEDS: Bupivacaine Mpf 0.5% 30 ML VIAL (13:45)
--- NOTE | 2021-07-12 13:46 | OP.PCM_ITS ---
Report of Operation Date of Procedure: 07/12/21 Pre-Operative Diagnosis: Left spigelian hernia Post-Operative Diagnosis: Same Surgery/Procedure Performed:: Laparoscopic repair of left spigelian hernia with mesh Surgeon: Harper Carter Type of Anesthesia: General/Supplemental Anesthesiologist: Boogie Marsh Special Medications: Cefotetan 2 g IV x1 Specimen's removed: None Estimated Blood Loss (mL): 10 cc Description of Procedure: Indications this is a 81 year-old female who had a pr eviously incarcerated left spigelian hernia which was able to be reduced in office yesterday. Laparoscopic hernia repair with mesh was elected. Description procedure: The patient was placed on operating table in supine position. General Anesthesia was induced. A timeout was completed verifying correct patient, procedure, site, position, social, and special equipment prior to beginning procedure. Arms were tucked and appropriately padded. The abdomen was prepped and draped in usual sterile fashion. An incision was made in the epigastric midline. The fascia was elevated and incised. The peritoneum was elevated and incised. Entry into the peritoneum was confirmed visually and no bowel was noted in the vicinity of the incision. Clark trocar was placed. The abdomen was insufflated with carbon dioxide to a pressure of 12-15 mmHg. Patient tolerated insufflation well. The laparoscope was then inserted and abdomen inspected. No injuries from initial trocar placement were noted. Additional trochars were then inserted in the following locations 5 mm trocar in the right lateral abdomen and left upper quadrant. The abdomen was inspected no abnormalities were found. The left spigelian hernia was identified. 0 Prolene sutures were placed to close the fascial defect using a Morris-iris suture passer needle x2. The echo mesh was showed chosen for repair 11 cm x 11 cm. Mesh was rolled into a cylinder in place through the Clark trocar. The inflation tubing was grasped with a suture passer in the middle of the hernia defect and pulled up against the abdominal wall. The balloon was deployed and the mesh was laying flat against the abdominal wall. This securestrap was used to secure the mesh in place. The balloon deployment system was removed from the mesh and the abdomen. The mesh was further secured in place careful to avoid the vessels including the epigastric. Secondary trochars removed under direct vision. No bleeding was noted the trocar sites. The laparoscope was withdrawn and umbilical trocar removed. The abdomen was allowed to collapse. The fascia of the 12 mm trocar was closed with a jgpvem-kl-syhjr 0 Vicryl suture. The skin was closed with sutures of 4-0 Monocryl and Steri-Strips. The patient was extubated. The patient tolerated procedure well and was taken to the postanesthesia care unit in stable condition. Complications none
--- NOTE | 2021-07-12 13:50 | EX.PCM.DISCH ---
Discharge Instructions Diet Discharge Diet: Light diet - advance as tolerated Activity Discharge Activity: May Not Drive (while taking narcotic pain medications.) May shower in (days): 1 Lifting Restrictions: no lifting >20 lbs x 2 wks, no strenuous exercise for 4 wks Dressing / Incision Call your doctor if your incision/area has: Continuous Slow Oozing, Sudden Increased Bleeding, Increased Pain/ Swelling, Increased Redness, Foul Smelling Discharge and Swelling at the incision site Call your doctor if you observe: Fever of 101 or Higher Remove Dressing in: 2 days Cleanse incision/area with: Soap & Water Additional Dressing/Incision Instructions:: Steri-Strips will fall off in 7 to 10 days, if they do not fall off okay to remove after 10 days. Follow Up Care Please Follow Up With: Harper Carter MD When: Call the office for a follow-up appointment 2 weeks; after 5 PM and on the weekends call [phone] with any concerns. Test Results: Test results from this visit will be discussed in further detail at your follow-up appointment, if applicable. Discharge Plan Admission Admit Date/Time: 07/11/21 14:45 Attending Provider: Harper Carter Primary Care Provider: Gm Dias Discharge Orders/Prescriptions Prescriptions: New oxycodone-acetaminophen 5-325 mg tablet 1 tab PO Q6H PRN (Reason: pain) 3 Days Qty: 14 RF: 0 Continued atorvastatin 40 MG tablet 40 mg PO QHS RF: 0 cholecalciferol (vitamin D3) 2,000 UNIT tablet,chewable 2,000 unit PO DAILY RF: 0 ltgcbablwesc-pmr-vljb-FA-vit K 1 EACH tablet 1 ea PO DAILY RF: 0 Held aspirin 81 MG tablet,chewable 81 mg PO DAILY@0800 RF: 0 Hold Instructions: Resume on 07/16/21. Referrals / Follow Up: Gm Dias MD [Primary Care Provider] - Disposition Disposition (needs filled in before D/C Order can be placed): Home, Self Care
--- NOTE | 2021-07-12 16:39 | SUR.PHASEI ---
AT APPROXIMATELY 1615, I PHONED THE PATIENT'S SISTER, LOGAN AQUINO AT [phone] AND UPDATED HER ON THE PATIENT'S CONDITION. I INFORMED LOGAN THAT THE PATIENT WAS SPENDING THE NIGHT ON MED SURG 2, ROOM 211.
[2021-07-12] MEDS: oxyCODONE 5 MG Tablet PO (21:43)
[2021-07-13] MEDS: Acetaminophen 325 MG Tablet 650 MG PO ×2 (01:09→08:18)
[2021-07-13] MEDS: 0.9% Saline Lock 10 ML Syringe IV (01:09)
[2021-07-13 03:19] VITALS: BP 105/60; PULSE 81; RESP 18; TEMP 36.6; O2SAT 100
[2021-07-13] MEDS: Docusate Sodium 100 MG Capsule PO (08:18)
--- NOTE | 2021-07-13 08:36 | PN.SURG_ITS ---
Subjective Subjective Patient still has some pain in her left lower abdomen improved from yesterday, tolerating diet, voiding well after straight cath Objective Data Objective Data Vital Signs: Vital Signs Temp Pulse Resp BP Pulse Ox 97.9 F 81 18 105/60 100 07/13/21 03:19 07/13/21 03:19 07/13/21 03:19 07/13/21 03:19 07/13/21 03:19 Oxygen Flow Rate (L/min) 2 Oxygen Delivery Method Room Air Weight: 131 lb 3.2 oz Body Mass Index (BMI) 24.7 Intake & Output: Intake and Output for Last 24 Hours 07/11/21 07/12/21 07/13/21 23:59 23:59 23:59 Intake Total 3520.00 / 3520.00 1700 / 1700 Output Total 700 / 700 180 / 180 Balance 2820.00 / 2820.00 1520 / 1520 Lab / Micro Data Result Diagrams: 07/12/21 05:20 07/12/21 05:20 Physical Exam Resp normal respiratory effort Cardio regular rate GI GI Narrative: Abdomen: Soft, nondistended, tender near incision's dressed clean dry and intact, no peritoneal signs Assessment & Plan Assessment/Plan (1) Spigelian hernia: PLAN: Pt pain is controlled and improving, eduardo PO, ok to d/c home. Harper Carter M.D. Pager: [phone] [facility] [address] [place] [address], [facility], [address] [place] [id number] Office: [phone]
[2021-07-13 08:50] VITALS: BP 109/59; PULSE 69; RESP 16; TEMP 36.8; O2SAT 99
--- NOTE | 2021-07-13 08:53 | CASEMGMT ---
Intro role of CM to patient and ALEXANDER form explained re: Observation status for treatment of left lower quadrant pain. Explained hospitalization will be paid per her insurance policy for Outpatient billing and condition will continue to be evaluated for Inpt necessity. Also let pt know that [facility] sends paper in the billing packet with their phone number if questions arise. Pt verbalizes understanding and does not have further questions. Form signed, copy made and placed in chart, and original given to pt. Tara MOLINAN RN CM
== END 2021-07-13 14:14 | disposition home or self-care (01) ==
PROVIDERS: Admitting Provider Surgery; PCP Internal Medicine; Visit Provider Surgery
PROC: 0WQF4ZZ Repair Abdominal Wall, Percutaneous Endoscopic Approach (ICD-10-PCS; CPT 49653; principal; 2021-07-12 13:10)
DX: K43.9 Ventral hernia without obstruction or gangrene (principal); E78.00 Pure hypercholesterolemia, unspecified; Z79.82 Long term (current) use of aspirin; Z79.899 Other long term (current) drug therapy; Z87.891 Personal history of nicotine dependence; Z95.2 Presence of prosthetic heart valve
CPT/HCPCS: 49653; 36415; 80048; 85025; 96360; 96361; 99218; 99251; 99406; J7030; A4216; G0378; G0463; J2405